=== PATIENT | male | born 1930 | race Caucasian/White ===

== ENCOUNTER 2018-09-22 04:30 | Observation (INO) | payer MEDICARE, BC ==
[2018-09-22] MEDS ORDERED: methylPREDNISolone Sod Succ/PF 125 MG/2 ML VIAL ONE (05:04)
[2018-09-22] MEDS ORDERED: diphenhydrAMINE 50 MG/ML VIAL ONE (05:04)
[2018-09-22] MEDS ORDERED: Famotidine/PF 20 mg/2ml Vial ONE (05:41)
[2018-09-22] MEDS ORDERED: Ondansetron PF 4 MG/2 ML Vial IVP PRN (08:50)
[2018-09-22] MEDS ORDERED: HYDROcodone/Acetaminophen 5/325 mg Tablet PO PRN (08:50)
[2018-09-22] MEDS ORDERED: Aspirin 81 mg Enteric Coated Tablet PO SCH (10:30)
[2018-09-22] MEDS ORDERED: Dutasteride 0.5 MG CAP PO SCH (10:30)
[2018-09-22] MEDS ORDERED: Verapamil 120 MG TAB PO SCH (10:30)
[2018-09-22] MEDS ORDERED: Famotidine 20 MG TAB PO SCH (10:30)
[2018-09-22] MEDS ORDERED: Finasteride 5 MG TAB PO SCH (10:30)
[2018-09-22] MEDS ORDERED: Enoxaparin Sodium 40 MG/0.4 ML SYRINGE SC SCH (10:30)
[2018-09-22] MEDS ORDERED: Aspirin Chewable 81 MG TAB ONE (10:49)
[2018-09-22] MEDS ORDERED: Enoxaparin Sodium 40 MG/0.4 ML SYRINGE ONE (10:49)
[2018-09-22] MEDS ORDERED: methylPREDNISolone Sod Succ 40 MG VIAL ONE (12:03)
[2018-09-22] MEDS ORDERED: Famotidine 20 MG TAB ONE (12:03)
[2018-09-22] MEDS: methylPREDNISolone Sod Succ 40 MG VIAL IVP SCH ×2 (12:19→20:23)
--- NOTE | 2018-09-22 12:59 | HP ---
HISTORY OF PRESENT ILLNESS: This is an 87-year-old white male with a history of hypertension and hyperlipidemia, who presents with tongue swelling. The patient is doing well until earlier this morning. His tongue acutely began to swell. He was having difficulty swallowing and breathing. He presented to the emergency room, where he was given steroids and this morning is feeling somewhat better, but his tongue is still quite swollen. He has been on lisinopril for several years. His only new dietary change has been he has been eating pecan pie's for the past several days. These are little pecan like pie's and small miniature hand pies. At this time, he is not in any respiratory distress. He has not been having any fever. PAST MEDICAL HISTORY: Hypertension, macular degeneration, hyperlipidemia, and skin cancer. PAST SURGICAL HISTORY: Include arthroscopic knee surgery, basal cell carcinoma removal, colonoscopy, EGD, partial colectomy for ischemic enteritis, and diverticulosis. FAMILY HISTORY: Father passed with heart disease. Mother has . He has 1 son and 1 daughter. MEDICATIONS: 1. Iron 325 daily. 2. Aspirin 81 daily. 3. Crestor 10 daily. 4. Avodart 0.5 daily. 5. Verapamil 240 ER daily. 6. Lisinopril 5 daily. 7. Finasteride 5 mg daily. 8. Nexium 40 daily. ALLERGIES: NONE. REVIEW OF SYSTEMS: As above. PHYSICAL EXAMINATION: VITAL SIGNS: Temperature afebrile, blood pressure 118/69, pulse ox 100, respiratory rate 17, and heart rate 76. GENERAL: The patient in no acute distress at this time. HEENT: Tongue with significant swelling. No airway obstruction. NECK: Supple. HEART: Regular rate and rhythm. LUNGS: Clear. ABDOMEN: Soft. EXTREMITIES: With no edema. LABORATORY DATA: None. ASSESSMENT: 1. Tongue swelling possibly secondary to lisinopril versus pecans. The patient has been on lisinopril for several years and is on 5 mg daily. He has significant increases in pecan consumption over the past several days. 2. Rash seen in the office several weeks prior, resolving. Diagnosed with a contact dermatitis. 3. Hypertension and hyperlipidemia. 4. History of anemia. 5. Benign prostatic hyperplasia. PLAN: 1. EpiPen instructions. 2. Solu-Medrol 40 q.6. 3. Stop lisinopril and pecans. 4. Discussed anaphylaxis with the patient. Job ID: [id number]
[2018-09-22] MEDS: Enoxaparin Sodium 40 MG/0.4 ML SYRINGE SC SCH (20:04)
[2018-09-22] MEDS: Dutasteride 0.5 MG CAP PO SCH (20:08)
[2018-09-22] MEDS: Sodium Chloride 0.9% 1,000 ML IV SCH (20:23)
[2018-09-22] MEDS: Famotidine 20 MG TAB PO SCH (20:32)
[2018-09-22] MEDS: Finasteride 5 MG TAB PO SCH (20:41)
[2018-09-22] MEDS ORDERED: Rosuvastatin 10 MG TAB PO SCH (21:00)
[2018-09-22] MEDS: Aspirin 81 mg Enteric Coated Tablet PO SCH (21:43)
[2018-09-22] MEDS: Verapamil 120 MG TAB PO SCH (21:44)
[2018-09-22 23:43] VITALS: BMI 24.4
[2018-09-23] MEDS: methylPREDNISolone Sod Succ 40 MG VIAL IVP SCH ×2 (00:26→06:16)
[2018-09-23 05:29] LABS: #Lymphocytes 0.8 thou/uL (1.20-3.40); #Monocytes 0.1 thou/uL (0.11-0.59); #Neutrophils 11.5 thou/uL (1.40-6.50); %Eosinophils 0.1 % (0.0-10.0); %Lymphocytes 6.3 % (21.0-51.0); %Monocytes 0.8 % (0.0-10.0); %Neutrophils 92.8 % (42.0-75.0); Hemoglobin 11.6 g/dL (14.0-18.0); Mean Corpuscular HGB CONC 31.1 g/dL (32.0-36.0); Mean Corpuscular Hemoglobin 29.4 pg (27.0-31.0); Mean Corpuscular Volume 94.6 fL (78.0-98.0); Mean Platelet Volume 7.8 fL (7.4-10.4); Platelet Count 270 thou/uL (130-400); RBC Distribution Width 12.8 % (11.5-14.5); Red Blood Cell (RBC) Count 3.93 mill/uL (4.70-6.10); White Blood Cell (WBC) Count 12.3 thou/uL (4.8-10.8)
[2018-09-23 05:52] LABS: Anion Gap 11 mmol/L (10-20); BUN (Urea Nitrogen) 21 mg/dL (8.4-25.7); Calc. Creatinine Clearance 65 mL/min (70-130); Calcium 9.3 mg/dL (7.8-10.44); Carbon Dioxide 24 mmol/L (23-31); Chloride 107 mmol/L (98-107); Estimated GFR-MDRD 86; Glucose 140 mg/dL (83-110); Potassium 3.8 mmol/L (3.5-5.1); Sodium 138 mmol/L (136-145)
[2018-09-23] MEDS: Dutasteride 0.5 MG CAP PO SCH (08:36)
[2018-09-23] MEDS: Aspirin 81 mg Enteric Coated Tablet PO SCH (08:36)
[2018-09-23] MEDS: Finasteride 5 MG TAB PO SCH (08:36)
[2018-09-23] MEDS: Famotidine 20 MG TAB PO SCH (08:37)
[2018-09-23] MEDS: Verapamil 120 MG TAB PO SCH (08:38)
[2018-09-23] MEDS: Enoxaparin Sodium 40 MG/0.4 ML SYRINGE SC SCH (08:39)
[2018-09-23 08:53] VITALS: BP 126/63; TEMP 97.6
[2018-09-23] MEDS ORDERED: Prevnar 13-Val Conj/PF 0.5 ML SYRINGE IM ONE (09:00)
--- NOTE | 2018-09-23 09:03 | DIS ---
DATE OF ADMISSION: 09/22/2018 DATE OF DISCHARGE: 09/23/2018 DISCHARGE DIAGNOSES: 1. Tongue swelling. 2. Anaphylaxis. 3. Rash, resolving. 4. Hypertension and hyperlipidemia. 5. History of anemia. 6. BPH. PLAN: 1. Discharge home. 2. EpiPen instructions. 3. Prednisone taper. 4. Resume all home medications to include;. a. Iron 325 daily. b. Aspirin 81 daily. c. Crestor 10 daily. d. Avodart 0.5 daily. e. Verapamil 240 ER daily. f. Lisinopril 5 daily. g. Finasteride 5 daily. h. Nexium 40 daily. BRIEF HISTORY: This 87-year-old white male presents with acute onset of tongue swelling. Etiology is uncertain. Possibly related to lisinopril. However, over the past several days, the patient has been consuming greater quantities of pecans. His tongue began swelling on the day of admission to where he was having trouble breathing. He then presented to the ER, where he was given steroids and felt immediate relief. However, his tongue swelling was still present. HOSPITAL COURSE: The patient was admitted. The patient was placed on Solu-Medrol IV q.6. He has done very well. His tongue swelling has nearly returned to normal. He is now ready for discharge and will follow up in the office in 1 week. His lisinopril will be held at this time and his blood pressure will be rechecked at followup. Job ID: [id number]
[2018-09-23] MEDS: Sodium Chloride 0.9% 1,000 ML IV SCH (09:08)
== END 2018-09-23 09:15 | disposition home or self-care (01) ==
LOC: ERS 04:30 → ERHOLD 06:27 → 2SW 18:39
PROVIDERS: ADMIT Family Medicine; ATTEND Family Medicine
DX: K14.8 Other diseases of tongue (principal); T78.2XXA Anaphylactic shock, unspecified, initial encounter; L25.9 Unspecified contact dermatitis, unspecified cause; I10 Essential (primary) hypertension; E78.5 Hyperlipidemia, unspecified; N40.0 Benign prostatic hyperplasia without lower urinary tract symptoms; Z79.82 Long term (current) use of aspirin; Z79.899 Other long term (current) drug therapy
CPT/HCPCS: 80048; 85025; 93005; 96361 ×2; 96372; 96374; 96375; 96376 ×2; 99285; G0378; 36415; J1200; J1650; J2920; J2930; S0028

== ENCOUNTER 2018-11-06 02:56 | Observation (INO) | payer MEDICARE, BC ==
[2018-11-06] MEDS ORDERED: methylPREDNISolone Sod Succ/PF 125 MG/2 ML VIAL ONE (03:45)
[2018-11-06] MEDS ORDERED: Famotidine/PF 20 mg/2ml Vial ONE (03:45)
[2018-11-06] MEDS ORDERED: diphenhydrAMINE 50 MG/ML VIAL ONE (03:45)
--- NOTE | 2018-11-06 10:38 | SS ---
DATE OF ADMISSION: 11/06/2018 DATE OF DISCHARGE: 11/06/2018 DISCHARGE DIAGNOSES: 1. Tongue swelling secondary to pecans. 2. Hypertension. 3. Hyperlipidemia. 4. Arthritis. 5. History of anemia. BRIEF HISTORY: This is an 87-year-old white male, who presents with tongue swelling. The patient was hospitalized on September 22 for very similar incident. He presented with severe tongue swelling. At that time, it was unclear whether this was due to lisinopril or to pecans. At that time, he had consumed a large number of pecans. He was stabilized on steroids and discharged home. The lisinopril has been stopped since then. Yesterday, the patient had approximately 4 cookies with pecans. Immediately afterwards, he began developing a similar tongue swelling. He injected himself with his EpiPen and did well and presented to the emergency room. This morning, his tongue swelling is down significantly. He is feeling much better and wanted to go home. PAST MEDICAL HISTORY: Hypertension, hyperlipidemia, and macular degeneration. PAST SURGICAL HISTORY: Include arthroscopic knee surgery, basal cell carcinoma removal, colonoscopy, partial colon resection for ischemic enteritis. FAMILY HISTORY: Father with heart disease. SOCIAL HISTORY: He is . He has one son and one daughter. He does not smoke. 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 MEDICATIONS: 1. Crestor 10 daily. 2. Eye drops. 3. Avodart 0.5 daily. 4. Verapamil 240 daily. 5. Flomax 0.4 daily. 6. Nexium 40 daily. 7. Aspirin 81 daily. 8. Iron 325 daily. REVIEW OF SYSTEMS: As above. PHYSICAL EXAMINATION: VITAL SIGNS: Stable, afebrile. GENERAL: No acute distress. HEENT: Mild tongue swelling, otherwise clear. HEART: Regular rate and rhythm. LUNGS: Clear. ABDOMEN: Soft, nontender. EXTREMITIES: With no edema. He does have some sores. He states which have been present for over the past month. LABORATORY DATA: None. ASSESSMENT: 1. Tongue swelling, most likely secondary to pecans. 2. Hypertension. 3. Hyperlipidemia. 4. Impetigo. PLAN: 1. Discharge home. 2. Followup in 1 day. 3. Precautions given to return to the ER for any recurrent tongue swelling. 4. Plan to refer the patient to Allergy as on an outpatient basis to confirm the pecan allergy. 5. We will give cefdinir 300 b.i.d. for impetigo. Job ID: [id number]
== END 2018-11-06 08:30 | disposition home or self-care (01) ==
LOC: ERS 02:56 → ERHOLD 05:11
PROVIDERS: ADMIT Family Medicine; ATTEND Family Medicine
DX: T78.1XXA Other adverse food reactions, not elsewhere classified, initial encounter (principal); R22.0 Localized swelling, mass and lump, head; E78.5 Hyperlipidemia, unspecified; M19.90 Unspecified osteoarthritis, unspecified site; L01.00 Impetigo, unspecified; I10 Essential (primary) hypertension; Z79.82 Long term (current) use of aspirin; Z79.899 Other long term (current) drug therapy; Z88.8 Allergy status to other drugs, medicaments and biological substances
CPT/HCPCS: 93005; 96374; 96375; 99285; G0378; J1200; J2930; S0028

== ENCOUNTER 2018-12-05 08:17 | Outpatient (CLI) | payer MEDICARE, BC ==
--- NOTE | 2018-12-05 08:32 | RAD ---
EXAM: Chest 2 views: HISTORY: Cough COMPARISON: 04/12/2011 FINDINGS: Heart size:Within normal limits. Lungs:No significant acute process. Mild biapical pleural thickening. Atherosclerotic changes of the aorta. No confluent pneumonia, overt edema, pleural effusion, pneumothorax, or other significant acute proce ss. IMPRESSION: Atherosclerosis of the aorta. No acute intrathoracic disease.
== END 2018-12-05 08:18 | disposition home or self-care (01) ==
LOC: BICRAD 08:17
PROVIDERS: ATTEND Allergy & Immunology
DX: R05 Cough (principal); I70.0 Atherosclerosis of aorta
CPT/HCPCS: 71046

== ENCOUNTER 2021-03-19 21:08 | Emergency (ER) | payer MEDICARE, BC ==
[2021-03-19 21:50] LABS: #Eosinphils 0.6 thou/uL (0.0-0.7); #Lymphocytes 1.8 thou/uL (1.20-3.40); #Monocytes 0.5 thou/uL (0.11-0.59); #Neutrophils 7.2 thou/uL (1.40-6.50); %Basophils 0.3 % (0.0-1.0); %Eosinophils 5.5 % (0.0-10.0); %Lymphocytes 17.8 % (21.0-51.0); %Monocytes 5.4 % (0.0-10.0); %Neutrophils 71.1 % (42.0-75.0); Hemoglobin 11.7 g/dL (14.0-18.0); Mean Corpuscular HGB CONC 32.9 g/dL (32.0-36.0); Mean Corpuscular Hemoglobin 30.9 pg (27.0-31.0); Mean Corpuscular Volume 93.9 fL (78.0-98.0); Mean Platelet Volume 6.8 fL (7.4-10.4); Platelet Count 377 thou/uL (130-400); RBC Distribution Width 12.6 % (11.5-14.5); Red Blood Cell (RBC) Count 3.78 mill/uL (4.70-6.10); White Blood Cell (WBC) Count 10.1 thou/uL (4.8-10.8)
[2021-03-19 22:14] LABS: ALT (SGPT) 23 U/L (8-55); AST (SGOT) 30 U/L (5-34); Alkaline Phosphatase 83 U/L (40-110); Anion Gap 14 mmol/L (10-20); BUN (Urea Nitrogen) 13 mg/dL (8.4-25.7); Bilirubin, Total 0.3 mg/dL (0.2-1.2); Calc. Creatinine Clearance 0 mL/min (70-130); Calcium 9.4 mg/dL (7.8-10.44); Carbon Dioxide 24 mmol/L (23-31); Chloride 105 mmol/L (98-107); Globulin 3.1 g/dL (2.4-3.5); Glucose 99 mg/dL (83-110); Potassium 4.2 mmol/L (3.5-5.1); Protein, Total 7.1 g/dL (5.8-8.1); Sodium 139 mmol/L (136-145)
[2021-03-19 22:19] LABS: Bilirubin Negative (Negative); Blood, Urine 3+ (Negative); Clarity Extra Turbid (Clear); Glucose, Urine (Dipstick) Normal (Negative); Ketone, Urine Negative (Negative); Leukocyte 75 Leu/uL (Negative); Nitrite Negative (Negative); Protein, Urine (Dipstick) 100 mg/dL (Neg-Trace); RBC/HPF Greater than 50 HPF (0-3); Specific Gravity, Urine 1.014 (1.002-1.036); Squamous Epithelial None Seen HPF (0-3); Urobilinogen Normal mg/dL (Less than 2); WBC/HPF Greater than 50 HPF (0-3); pH, Urine 6.5 (5.0-9.0)
[2021-03-19 22:27] LABS: Bacteria/HPF 2+ HPF (None Seen)
[2021-03-19] MEDS ORDERED: Cefdinir 300 MG CAP PO SCH (23:45)
== END 2021-03-20 01:09 | disposition home or self-care (01) ==
LOC: ERS 21:08
DX: R33.9 Retention of urine, unspecified (principal); I10 Essential (primary) hypertension
CPT/HCPCS: 51700; 80053; 81003; 81015; 85025; 87086

== ENCOUNTER 2021-03-20 20:51 | Emergency (ER) | payer MEDICARE, BC | END 2021-03-20 23:39 | disposition home or self-care (01) | LOC: ERS 20:51 | DX: T83.038A Leakage of other urinary catheter, initial encounter (principal); R33.9 Retention of urine, unspecified; I10 Essential (primary) hypertension | CPT/HCPCS: 51702 ==

== ENCOUNTER 2021-09-14 19:23 | Inpatient (IN) | payer MEDICARE, BC ==
[2021-09-14 20:48] LABS: #Lymphocytes 0.5 thou/uL (1.20-3.40); #Monocytes 0.4 thou/uL (0.11-0.59); #Neutrophils 6.7 thou/uL (1.40-6.50); %Eosinophils 0.1 % (0.0-10.0); %Lymphocytes 6.7 % (21.0-51.0); %Monocytes 5.8 % (0.0-10.0); %Neutrophils 87.4 % (42.0-75.0); Hemoglobin 11.6 g/dL (14.0-18.0); Mean Corpuscular HGB CONC 32.9 g/dL (32.0-36.0); Mean Corpuscular Hemoglobin 31.3 pg (27.0-31.0); Mean Corpuscular Volume 95.3 fL (78.0-98.0); Platelet Count 220 thou/uL (130-400); RBC Distribution Width 13.1 % (11.5-14.5); White Blood Cell (WBC) Count 7.7 thou/uL (4.8-10.8)
[2021-09-14 21:07] LABS: ALT (SGPT) 23 U/L (8-55); AST (SGOT) 39 U/L (5-34); Albumin 3.9 g/dL (3.4-4.8); Alkaline Phosphatase 104 U/L (40-110); Anion Gap 14 mmol/L (10-20); BUN (Urea Nitrogen) 17 mg/dL (8.4-25.7); Bilirubin, Total 0.5 mg/dL (0.2-1.2); CK (CPK) 527 U/L (30-200); Calc. Creatinine Clearance 0 mL/min (70-130); Calcium 8.5 mg/dL (7.8-10.44); Carbon Dioxide 22 mmol/L (23-31); Chloride 101 mmol/L (98-107); Globulin 2.2 g/dL (2.4-3.5); Glucose 107 mg/dL (83-110); Magnesium 1.9 mg/dL (1.6-2.6); Potassium 3.7 mmol/L (3.5-5.1); Protein, Total 6.1 g/dL (5.8-8.1); Sodium 133 mmol/L (136-145)
[2021-09-14 21:40] LABS: Bacteria/HPF None Seen HPF (None Seen); Bilirubin Negative (Negative); Blood, Urine 2+ (Negative); Clarity Clear (Clear); Glucose, Urine (Dipstick) Normal (Negative); Ketone, Urine Trace mg/dL (Negative); Leukocyte Negative Leu/uL (Negative); Nitrite Negative (Negative); Protein, Urine (Dipstick) 20 mg/dL (Neg-Trace); RBC/HPF 0-3 HPF (0-3); Specific Gravity, Urine 1.018 (1.002-1.036); Squamous Epithelial None Seen HPF (0-3); Urobilinogen Normal mg/dL (Less than 2); WBC/HPF 0-3 HPF (0-3)
[2021-09-14] MEDS ORDERED: Acetaminophen 500 MG TAB ONE (21:45)
[2021-09-14] MEDS ORDERED: Boostrix 0.5 ML (Tdap) VIAL ONE (21:45)
[2021-09-14] MEDS ORDERED: cefTRIAXone\\ROCEPHIN 2 GM VIAL ONE (21:45)
[2021-09-15 01:49] LABS: SARS-CoV-2 NAA Rapid Test Not Detected (NotDetected)
[2021-09-15] MEDS ORDERED: Ondansetron PF 4 MG/2 ML Vial IVP PRN (04:49)
[2021-09-15] MEDS ORDERED: Ondansetron ODT 4 MG TAB PO PRN (04:49)
[2021-09-15] MEDS ORDERED: Acetaminophen 650 MG Suppository PR PRN (04:49)
[2021-09-15] MEDS ORDERED: Sodium Chloride 0.9% 1,000 ML IV SCH (05:45)
[2021-09-15] MEDS: Sodium Chloride 0.9% 1,000 ML IV SCH ×2 (08:53→19:47)
[2021-09-15] MEDS ORDERED: Enoxaparin Sodium 40 MG/0.4 ML SYRINGE ONE (09:56)
[2021-09-15] MEDS ORDERED: Aspirin Chewable 81 MG TAB ONE (09:56)
[2021-09-15] MEDS: Aspirin 81 mg Enteric Coated Tablet PO SCH (10:00)
[2021-09-15] MEDS: Finasteride 5 MG TAB PO SCH (10:00)
[2021-09-15] MEDS: Enoxaparin Sodium 40 MG/0.4 ML SYRINGE SC SCH (10:01)
[2021-09-15] MEDS ORDERED: Acetaminophen 325 MG TAB ONE (11:17)
[2021-09-15] MEDS: Acetaminophen 325 MG TAB PO PRN ×2 (11:19→19:46)
[2021-09-15 11:20] VITALS: BMI 20.9
[2021-09-15] MEDS ORDERED: Melatonin 3 MG TAB PO PRN (16:39)
[2021-09-15] MEDS: Bacitracin 1 PK TOP SCH (19:47)
[2021-09-15] MEDS ORDERED: Tamsulosin HCl 0.4 MG CAP PO SCH (21:00)
[2021-09-16 04:43] LABS: #Monocytes 0.5 thou/uL (0.11-0.59); #Neutrophils 3.4 thou/uL (1.40-6.50); %Basophils 0.3 % (0.0-1.0); %Eosinophils 0.4 % (0.0-10.0); %Lymphocytes 19.3 % (21.0-51.0); %Monocytes 10.9 % (0.0-10.0); %Neutrophils 69.2 % (42.0-75.0); Mean Corpuscular HGB CONC 32.2 g/dL (32.0-36.0); Mean Corpuscular Hemoglobin 30.7 pg (27.0-31.0); Mean Corpuscular Volume 95.5 fL (78.0-98.0); Mean Platelet Volume 7.1 fL (7.4-10.4); Platelet Count 190 thou/uL (130-400); RBC Distribution Width 13.3 % (11.5-14.5); Red Blood Cell (RBC) Count 3.58 mill/uL (4.70-6.10)
[2021-09-16 05:03] LABS: Anion Gap 10 mmol/L (10-20); BUN (Urea Nitrogen) 15 mg/dL (8.4-25.7); Calc. Creatinine Clearance 61 mL/min (70-130); Calcium 8.4 mg/dL (7.8-10.44); Carbon Dioxide 23 mmol/L (23-31); Chloride 105 mmol/L (98-107); Glucose 86 mg/dL (83-110); Potassium 3.3 mmol/L (3.5-5.1); Sodium 135 mmol/L (136-145)
[2021-09-16] MEDS ORDERED: Rosuvastatin 10 MG TAB PO SCH (07:30)
[2021-09-16] MEDS: Bacitracin 1 PK TOP SCH (09:15)
[2021-09-16] MEDS: Enoxaparin Sodium 40 MG/0.4 ML SYRINGE SC SCH (09:15)
[2021-09-16] MEDS: Finasteride 5 MG TAB PO SCH (09:15)
[2021-09-16] MEDS: Aspirin 81 mg Enteric Coated Tablet PO SCH (09:15)
[2021-09-16 12:16] VITALS: TEMP 98.4
[2021-09-16 12:17] VITALS: BP 151/70
[2021-09-16] MEDS: Sodium Chloride 0.9% 1,000 ML IV SCH (12:44)
[2021-09-16] MEDS ORDERED: Potassium Chloride 20 MEQ TAB PO SCH (13:00)
[2021-09-16] MEDS ORDERED: FLU VACC QS2021-22(65YR UP)/PF 240 MCG/0.7 ML SYRINGE IM ONE (13:00)
== END 2021-09-16 15:00 | disposition home or self-care (01) | DRG 195 ==
LOC: ERS 19:23 → ERHOLD 22:14 → 2NO 09-15 12:35
PROVIDERS: ADMIT Student in an Organized Health Care Education/Training Program; ATTEND Internal Medicine
DX: J10.1 Influenza due to other identified influenza virus with other respiratory manifestations (principal); I10 Essential (primary) hypertension; E78.5 Hyperlipidemia, unspecified; T79.6XXA Traumatic ischemia of muscle, initial encounter; W19.XXXA Unspecified fall, initial encounter; S00.81XA Abrasion of other part of head, initial encounter; S60.511A Abrasion of right hand, initial encounter; Z20.822 Contact with and (suspected) exposure to COVID-19; S80.01XA Contusion of right knee, initial encounter; Y92.008 Other place in unspecified non-institutional (private) residence as the place of occurrence of the external cause; Z90.49 Acquired absence of other specified parts of digestive tract; Z98.890 Other specified postprocedural states; Z91.018 Allergy to other foods; Z79.82 Long term (current) use of aspirin; Z79.899 Other long term (current) drug therapy; Z88.8 Allergy status to other drugs, medicaments and biological substances
CPT/HCPCS: 0240U; 36415; 70450; 71250; 72125; 80048; 80053; 81003; 81015; 82550; 83735; 84484; 85025; 87040; 87077; 87086; 87149; 90471; 90715; 93005; 96365; J0696; J1650; J7050